=== PATIENT | female | born 1985 | race Caucasian/White ===

== ENCOUNTER 2024-07-26 05:56 | Day surgery (SDC) | payer BC, OTHER, SELFPAY ==
[2024-07-26] VITALS (10 sets, daily range): BP systolic 100–127; BP diastolic 39–72; BMI 34.6
[2024-07-26] MEDS: TYLENOL 1000 MG PO (06:13)
[2024-07-26] MEDS: CELEBREX 200 MG PO (06:13)
[2024-07-26] MEDS: NORMOSOL-R/PLASMALYTE-A 1000 IV (06:13)
[2024-07-26] MEDS: ZOFRAN 4 MG IV (09:38)
[2024-07-26] MEDS: COMPAZINE 5 MG IV (09:52)
--- NOTE | 2024-07-26 10:26 | SUR.PHASEI ---
in [facility] post left shoulder arthroscopy and left thumb [facility]. tearful. c/o of numbness ( from block) left arm and hand - ' I don't like that' and burning at left shoulder incisional area. Medicated by [facility] on arrival to [facility] and then c/o nausea. '
I don't like dilaudid' Medicated with Zofran - denies relief, then medicated with compazine. Sleeps. remains tearful - ' just don't like the way I feel': Encouraged to rest today and have someone with her for 24hours. nausea and burning subsided.
ice to shoulder and thumb. vss, dry cough. now taking few ice chips
== END 2024-07-26 11:45 | disposition home or self-care (01) ==
LOC: SDS 05:56
PROVIDERS: ATTENDING PHYSICIAN Orthopaedic Surgery Hand Surgery
DX: M75.42 Impingement syndrome of left shoulder (principal); M75.122 Complete rotator cuff tear or rupture of left shoulder, not specified as traumatic; M18.12 Unilateral primary osteoarthritis of first carpometacarpal joint, left hand
CPT/HCPCS: 29827; 29824; 25447; C1713; C1776

== ENCOUNTER → 2025-05-17 08:58 | Outpatient (REF) | payer BC, OTHER, SELFPAY | LOC: EMG 08:58 | PROVIDERS: ATTENDING PHYSICIAN Orthopaedic Surgery Hand Surgery; FAMILY PHYSICIAN Nurse Practitioner Family | DX: R20.0 Anesthesia of skin (principal); M79.642 Pain in left hand | CPT/HCPCS: 95886; 95909 ==